=== PATIENT | female | born 1970 | race Two or more races ===

== ENCOUNTER 2019-06-21 10:04 | Outpatient (CLI) | payer OTHER | END 2019-06-21 11:00 | disposition home or self-care (01) | LOC: WOUND MED 10:04 | DX: L97.512 Non-pressure chronic ulcer of other part of right foot with fat layer exposed (principal) | CPT/HCPCS: 11042; G0463; A4554; A4930; A6216; A6219 ==

== ENCOUNTER 2019-06-28 09:58 | Outpatient (CLI) | payer OTHER | END 2019-06-28 10:30 | disposition home or self-care (01) | LOC: WOUND MED 09:58 | DX: L97.512 Non-pressure chronic ulcer of other part of right foot with fat layer exposed (principal) | CPT/HCPCS: G0463; A4554; A4930; A6216 ==

== ENCOUNTER 2022-01-01 09:13 | Outpatient (CLI) | payer OTHER | END 2022-01-01 14:16 | disposition home or self-care (01) | LOC: WOUND MED 09:13 | PROVIDERS: ATTEND Specialist | DX: I83.228 Varicose veins of left lower extremity with both ulcer of other part of lower extremity and inflammation (principal); L97.822 Non-pressure chronic ulcer of other part of left lower leg with fat layer exposed ==

== ENCOUNTER 2022-01-08 09:35 | Outpatient (CLI) | payer OTHER | END 2022-01-08 10:00 | disposition home or self-care (01) | LOC: WOUND MED 09:35 | PROVIDERS: ATTEND Specialist | DX: I83.228 Varicose veins of left lower extremity with both ulcer of other part of lower extremity and inflammation (principal); L97.822 Non-pressure chronic ulcer of other part of left lower leg with fat layer exposed | CPT/HCPCS: 11042; A4930; A6219; A6223; A6251 ==

== ENCOUNTER 2022-01-15 10:16 | Outpatient (CLI) | payer OTHER | END 2022-01-15 12:00 | disposition home or self-care (01) | LOC: WOUND MED 10:16 | PROVIDERS: ATTEND Specialist | DX: L89.522 Pressure ulcer of left ankle, stage 2 (principal) | CPT/HCPCS: 11042; A4930; A6021; A6219; A6223; A6251 ==

== ENCOUNTER 2022-01-29 08:47 | Outpatient (CLI) | payer OTHER | END 2022-01-29 10:00 | disposition home or self-care (01) | LOC: WOUND MED 08:47 | PROVIDERS: ATTEND Specialist | DX: L89.522 Pressure ulcer of left ankle, stage 2 (principal) | CPT/HCPCS: 11042; A4930; A6219; A6223 ==

== ENCOUNTER 2022-02-05 09:03 | Outpatient (CLI) | payer OTHER | END 2022-02-05 11:00 | disposition home or self-care (01) | LOC: WOUND MED 09:03 | PROVIDERS: ATTEND Specialist | DX: L89.522 Pressure ulcer of left ankle, stage 2 (principal) | CPT/HCPCS: 11042; A4930; A6219; A6223 ==

== ENCOUNTER 2022-02-12 10:23 | Outpatient (CLI) | payer OTHER | END 2022-02-12 11:00 | disposition home or self-care (01) | LOC: WOUND MED 10:23 | PROVIDERS: ATTEND Specialist | DX: L89.522 Pressure ulcer of left ankle, stage 2 (principal) | CPT/HCPCS: 11042; A4930; A6219; A6223; A6251 ==

== ENCOUNTER 2022-02-15 11:08 | Outpatient (CLI) | payer OTHER | END 2022-02-15 13:00 | disposition home or self-care (01) | LOC: WOUND CARE 11:08 | PROVIDERS: ATTEND Specialist | DX: L89.522 Pressure ulcer of left ankle, stage 2 (principal) | CPT/HCPCS: 97602; A4930; A6219; A6223; A6251 ==

== ENCOUNTER 2022-02-19 08:57 | Outpatient (CLI) | payer OTHER | END 2022-02-19 12:23 | disposition home or self-care (01) | LOC: WOUND MED 08:57 | PROVIDERS: ATTEND Specialist | DX: L89.522 Pressure ulcer of left ankle, stage 2 (principal) | CPT/HCPCS: 11042; A4930; A6219; A6223 ==

== ENCOUNTER 2022-02-26 08:52 | Outpatient (CLI) | payer OTHER | END 2022-02-26 15:21 | disposition home or self-care (01) | LOC: WOUND MED 08:52 | PROVIDERS: ATTEND Specialist | DX: L89.522 Pressure ulcer of left ankle, stage 2 (principal) | CPT/HCPCS: A4930; A6223; G0463 ==